=== PATIENT | male | born 1950 ===

== ENCOUNTER → 2019-01-24 | Outpatient (REF) | payer MEDICARE, OTHER ==
[2019-01-24 12:17] LABS: INR 2.25; PROTHROMBIN TIME 25.3 SECONDS (12.1-14.4)
== END ==
LOC: M LABDRAWC 11:39
PROVIDERS: ATTEND Internal Medicine
DX: Z95.2 Presence of prosthetic heart valve (principal); Z51.81 Encounter for therapeutic drug level monitoring; Z79.01 Long term (current) use of anticoagulants